=== PATIENT | female | born 1980 | race Caucasian/White ===

== ENCOUNTER 2017-09-20 08:45 | Emergency (ER) | payer OTHER ==
[2017-09-20] MEDS: HYDROCODONE/APAP (5/325) TAB PO (09:41)
== END 2017-09-20 11:31 | disposition home or self-care (01) ==
LOC: FTE 08:45
DX: M25.471 Effusion, right ankle (principal)
CPT/HCPCS: 73610; 73610-RT; 99283-25

== ENCOUNTER 2018-09-14 05:23 | Emergency (ER) | payer OTHER ==
[2018-09-14] MEDS: DIPHENHYDRAMINE 50 MG INJ IM (06:05)
[2018-09-14] MEDS: DEXAMETHASONE 10 MG/ML 1 ML INJ IM (06:05)
== END 2018-09-14 06:43 | disposition home or self-care (01) ==
LOC: FTE 05:23
DX: S00.561A Insect bite (nonvenomous) of lip, initial encounter (principal); F41.9 Anxiety disorder, unspecified; W57.XXXA Bitten or stung by nonvenomous insect and other nonvenomous arthropods, initial encounter; Y92.9 Unspecified place or not applicable
CPT/HCPCS: 96372; 99284-25; J1100